=== PATIENT | female | born 1990 | race Caucasian/White ===

== ENCOUNTER 2019-01-27 16:01 | Emergency (ER) | payer BC ==
[~2019-01-27] VITALS: Ht 165.1 cm; Wt 54.0 kg
[2019-01-27 18:54] VITALS: BP 128/85
[2019-01-27] MEDS ORDERED: CLINDAMYCIN HCL 150MG CAPSULE PO SCH (19:15)
[2019-01-27] MEDS ORDERED: AMOXICILLIN/POTASSIUM CLAVULANATE 875/125MG TAB PO ONE (19:15)
== END 2019-01-27 19:28 | disposition home or self-care (01) ==
LOC: ER 16:01
DX: T19.2XXA Foreign body in vulva and vagina, initial encounter (principal); X58.XXXA Exposure to other specified factors, initial encounter; Y93.89 Activity, other specified; Y92.018 Other place in single-family (private) house as the place of occurrence of the external cause
CPT/HCPCS: 99284